=== PATIENT | male | born 1955 | race Caucasian/White ===

== ENCOUNTER 2021-04-17 15:41 | Emergency (ER) | payer BC ==
[2021-04-17] MEDS ORDERED: ACETAMINOPHEN TAB 325 MG TAB PO STA (19:51)
--- NOTE | 2021-04-17 19:56 | ED ---
General Adult HPI - General Chief complaint: Upper Respiratory Infection Stated complaint: Covid positive this am Time Seen by Provider: 04/17/21 19:50 Source: patient, family, RN notes reviewed Mode of arrival: ambulatory Limitations: no limitations - History of Present Illness Initial comments: This is a well-appearing 65-year-old male, alert and oriented 4, presents to the emergency room with 2 days of fever, sore throat, cough and body aches. Patient was exposed to the coronavirus. He had at home test and was positive. He has not been vaccinated. He does have history of COPD, diabetes and hypertension. He is a former smoker. Denies any chest pain or difficulty in breathing. He did have some nausea which has resolved. Denies any vomiting or diarrhea. -: days(s) (2) Severity scale (1-10): 0 Consistency: constant Associated Symptoms: cough, fever/chills, nausea/vomiting Treatments Prior to Arrival: none - Related Data Allergies Allergy/AdvReac Type Severity Reaction Status Date / Time Iodinated Contrast Media Allergy Unknown Verified 04/17/21 18:22 Review of Systems ROS Statement: Those systems with pertinent positive or pertinent negative responses have been documented in the HPI. ROS Other: All systems not noted in ROS Statement are negative. Past Medical History Past Medical History: COPD, Diabetes Mellitus, Hyperlipidemia, Hypertension History of Any Multi-Drug Resistant Organisms: None Reported Past Surgical History: Back Surgery, Orthopedic Surgery Past Psychological History: No Psychological Hx Reported Smoking Status: Former smoker Past Alcohol Use History: None Reported Past Drug Use History: None Reported General Exam Limitations: no limitations General appearance: alert, in no apparent distress Head exam: Present: atraumatic, normocephalic, normal inspection Eye exam: Present: normal appearance. Absent: scleral icterus, conjunctival injection, periorbital swelling, periorbital tenderness ENT exam: Present: normal exam, normal oropharynx, mucous membranes moist Neck exam: Present: normal inspection, full ROM. Absent: tenderness, meningismus, lymphadenopathy, thyromegaly Respiratory exam: Present: normal lung sounds bilaterally. Absent: respiratory distress, wheezes, rales, rhonchi, stridor, chest wall tenderness, accessory muscle use Cardiovascular Exam: Present: tachycardia. Absent: JVD GI/Abdominal exam: Present: soft, distended, normal bowel sounds, other ([id number]). Absent: tenderness, guarding, rebound, rigid Back exam: Present: normal inspection, full ROM. Absent: tenderness, CVA tenderness (R), CVA tenderness (L), rash noted Neurological exam: Present: alert, oriented X3 Psychiatric exam: Present: normal affect, normal mood Skin exam: Present: warm, dry, intact, normal color. Absent: rash, cyanosis, diaphoretic, pallor Course Vital Signs 04/17/21 04/17/21 18:19 19:55 Temperature 99.2 F 99.6 F Pulse Rate 106 H 99 Respiratory 16 20 Rate Blood Pressure 128/62 124/65 O2 Sat by Pulse 93 L 96 Oximetry Medical Decision Making - Medical Decision Making 65-year-old male gentleman presents to the emergency room with complaints of fever started yesterday with sore throat. Tested for coronavirus at home today and was positive. He is positive in the emergency room today as well. He has not been vaccinated and interested in receiving the monoclonal antibody infusion. He does have a history of COPD, diabetes and hypertension. He tolerated the monoclonal antibodies without any complications. He will be discharged home and directed to self quarantine for 10 days from symptom onset and 24 hours without fever. He was also directed to return to the emergency room with any new or concerning symptoms including worsening difficulty in breathing, chest pain. His vital signs are stable at discharge. He is agreeable to this plan of care. Case discussed with Dr. Finley - Lab Data Lab Results 04/17/21 Range/Units 18:20 Coronavirus (PCR) Detected A (Not Detectd) Disposition Clinical Impression: COVID-19 Disposition: HOME SELF-CARE Condition: Good Instructions (If sedation given, give patient instructions): Coronavirus Disease 2019 (COVID-19) Additional Instructions: Self quarantine for 10 days after symptom onset and 24 hours without fever. Follow-up with the primary care doctor as needed. Return to the emergency room with any new or concerning symptoms including chest pain or worsening difficulty in breathing. You can take vitamin C, vitamin D and Zinc to help him improve your immune system. Is patient prescribed a controlled substance at d/c from ED?: No Referrals: None,Stated [REFERRING] - 1-2 days Time of Disposition: 22:00
[2021-04-17 20:03] VITALS: RESP 20
[2021-04-17] MEDS ORDERED: SOTROVIMAB (EUA) 500 MG in SODIUM CHLORIDE 0.9% 100 ML IVPB ONE ×4 (20:15)
[2021-04-17] MEDS ORDERED: SODIUM CHLORIDE 0.9% 50 ML IVPB ONE ×2 (20:15)
[2021-04-17] MEDS ORDERED: ONDANSETRON 4 MG ODT STARTER PACK 2 TAB BTL PO STA (21:57)
[2021-04-17 22:35] VITALS: BP 167/91; PULSE 96; TEMP 98.8
== END 2021-04-17 22:34 | disposition home or self-care (01) ==
LOC: EC 15:41 → SUPCPDRO 15:41 → EC 22:34
DX: U07.1 COVID-19 (principal); J44.9 Chronic obstructive pulmonary disease, unspecified; E11.9 Type 2 diabetes mellitus without complications; I10 Essential (primary) hypertension; E78.5 Hyperlipidemia, unspecified; Z87.891 Personal history of nicotine dependence
CPT/HCPCS: 99283; 87635; S0119; Q0247